=== PATIENT | female | born 1955 | race Caucasian/White ===

== ENCOUNTER 2016-04-01 | Outpatient (CLI) | payer OTHER | END 2016-04-01 12:24 | disposition critical access hospital (66) | CPT/HCPCS: A0425; A0427 ==

== ENCOUNTER 2016-04-01 13:19 | Emergency (ER) | payer OTHER ==
[2016-04-01] MEDS ORDERED: ONDANSETRON 4 MG/2 ML VIAL IVP STA ×2 (13:45→15:20)
[2016-04-01] MEDS ORDERED: HYDROmorphone 1 MG/ML SYRINGE IVP STA ×3 (13:45→15:20)
[2016-04-01] MEDS ORDERED: ONDANSETRON 4 MG/2 ML VIAL ONE ×2 (13:46→15:21)
[2016-04-01] MEDS ORDERED: HYDROmorphone 1 MG/ML SYRINGE ONE ×3 (13:46→15:21)
[2016-04-01] MEDS ORDERED: SODIUM CHLORIDE 0.9% 1,000 ML IV ONE ×2 (14:09→15:21)
[2016-04-01] MEDS ORDERED: MAG HYDROX/AL HYDROX/SIMETH 30 ML UDC PO STA (16:10)
[2016-04-01] MEDS ORDERED: MAG HYDROX/AL HYDROX/SIMETH 30 ML UDC ONE (16:17)
[2016-04-01] MEDS ORDERED: PROMETHAZINE INJ 12.5 MG in SODIUM CHLORIDE 0.9% 50 ML IV STA (16:29)
[2016-04-01] MEDS ORDERED: PROMETHAZINE 25 MG/1 ML VIAL ONE (16:34)
[2016-04-01] MEDS ORDERED: SODIUM CHLORIDE 0.9% 50 ML IV ONE (16:34)
[2016-04-01] MEDS ORDERED: KETOROLAC 60 MG/2 ML VIAL IVP STA (17:01)
[2016-04-01] MEDS ORDERED: ACETAMINOPHEN 1,000 MG/100 ML 100 ML IV STA (17:01)
[2016-04-01] MEDS ORDERED: KETOROLAC 30 MG/ML VIAL ONE ×2 (17:06→17:39)
[2016-04-01] MEDS ORDERED: ACETAMINOPHEN 1,000 MG/100 ML 0 ML IV ONE (17:06)
[2016-04-01] MEDS ORDERED: ACETAMINOPHEN 1,000 MG/100 ML 100 ML IV ONE (17:39)
[2016-04-01] MEDS ORDERED: HYDROcod/ACET 5/325 Prepack 6 PO ONE ×2 (19:09→19:13)
[2016-04-01] MEDS ORDERED: ONDANSETRON ODT 4 MG Prepack 2 TL PRN (19:09)
[2016-04-01] MEDS ORDERED: ONDANSETRON ODT 4 MG Prepack 2 TL ONE (19:13)
== END 2016-04-01 19:32 | disposition home or self-care (01) ==
DX: S42.292A Other displaced fracture of upper end of left humerus, initial encounter for closed fracture (principal); S52.022A Displaced fracture of olecranon process without intraarticular extension of left ulna, initial encounter for closed fracture; S62.102A Fracture of unspecified carpal bone, left wrist, initial encounter for closed fracture; W07.XXXA Fall from chair, initial encounter
CPT/HCPCS: 29105; 73030; 73070; 73110; 96361; 96365; 96367; 96375; 96376; 99284; A9270; J0131; J1170; J7040

== ENCOUNTER 2016-04-03 | Outpatient (CLI) | payer OTHER | END 2016-04-03 06:43 | disposition critical access hospital (66) | DX: M79.602 Pain in left arm (principal) | CPT/HCPCS: A0425; A0427 ==

== ENCOUNTER 2016-04-03 07:05 | Emergency (ER) | payer OTHER ==
[2016-04-03] MEDS ORDERED: traMADol 50 MG TABLET PO STA (07:42)
[2016-04-03] MEDS ORDERED: KETOROLAC 60 MG/2 ML VIAL IVP STA (07:42)
[2016-04-03] MEDS ORDERED: traMADol 50 MG TABLET PO ONE (07:46)
[2016-04-03] MEDS ORDERED: KETOROLAC 60 MG/2 ML VIAL ONE (07:46)
== END 2016-04-03 09:41 | disposition home or self-care (01) ==
DX: S52.022D Displaced fracture of olecranon process without intraarticular extension of left ulna, subsequent encounter for closed fracture with routine healing (principal); S62.102D Fracture of unspecified carpal bone, left wrist, subsequent encounter for fracture with routine healing; S42.202D Unspecified fracture of upper end of left humerus, subsequent encounter for fracture with routine healing; W19.XXXD Unspecified fall, subsequent encounter
CPT/HCPCS: 96374; 99283; A9270

== ENCOUNTER 2016-04-07 06:23 | Observation (INO) | payer OTHER ==
[2016-04-07] MEDS ORDERED: ceFAZolin 2 GM/50 ML 50 ML IV ONE (06:30)
[2016-04-07] MEDS ORDERED: LACTATED RINGERS 1,000 ML IV ONE ×3 (07:23→13:36)
[2016-04-07] MEDS ORDERED: fentaNYL 100 MCG/2 ML VIAL IVP ONE (08:00)
[2016-04-07] MEDS ORDERED: MIDAZOLAM 2 MG/2 ML VIAL IVP ONE (08:00)
[2016-04-07] MEDS ORDERED: PROPOFOL 200 MG/20 ML VIAL IVP ONE (08:00)
[2016-04-07] MEDS ORDERED: ONDANSETRON 4 MG/2 ML VIAL IVP ONE (08:00)
[2016-04-07] MEDS ORDERED: LIDOCAINE-MPF 2% 5 ML VIAL IM ONE (08:00)
[2016-04-07] MEDS ORDERED: DEXAMETHASONE 4 MG/ML VIAL IVP ONE (08:00)
[2016-04-07] MEDS ORDERED: ROCURONIUM 50 MG/5 ML VIAL IVP ONE (08:00)
[2016-04-07] MEDS ORDERED: BUPIVACAINE 0.5%-EPI 1:200000 PF 30 ML VIAL SUBQ ONE ×5 (12:00→13:45)
[2016-04-07] MEDS: HYDROmorphone 1 MG/ML SYRINGE ONE ×3 (14:16→14:24)
[2016-04-07] MEDS ORDERED: HYDROmorphone 1 MG/ML SYRINGE IVP PRN (14:17)
[2016-04-07] MEDS ORDERED: oxyCOD/ACETAMIN 5 MG/325 MG TABLET PO PRN (14:17)
[2016-04-07] MEDS: ACETAMINOPHEN 1,000 MG/100 ML 100 ML IV SCH ×2 (16:26→22:24)
[2016-04-07] MEDS: ceFAZolin 2 GM/50 ML 50 ML IV SCH ×2 (18:44→23:54)
[2016-04-07] MEDS: SODIUM CHLORIDE FLUSH 0.9% 10 ML SYRINGE IVP PRN ×3 (18:53→23:55)
[2016-04-07] MEDS: ASPIRIN EC 325 MG TABLET PO SCH (20:25)
[2016-04-07] MEDS: KETOROLAC 30 MG/ML VIAL IVP PRN (21:51)
[2016-04-07] MEDS: SODIUM CHLORIDE FLUSH 0.9% 10 ML SYRINGE IVP SCH (21:51)
[2016-04-07] MEDS: HYDROmorphone 1 MG/ML SYRINGE IVP PRN (21:51)
[2016-04-07] MEDS: traMADol 50 MG TABLET PO PRN (22:51)
[2016-04-08] MEDS: oxyCOD/ACETAMIN 5 MG/325 MG TABLET PO PRN ×5 (00:51→23:55)
[2016-04-08] MEDS: SODIUM CHLORIDE FLUSH 0.9% 10 ML SYRINGE IVP PRN ×3 (02:11→09:58)
[2016-04-08] MEDS: HYDROmorphone 1 MG/ML SYRINGE IVP PRN ×4 (02:11→09:57)
[2016-04-08] MEDS: ACETAMINOPHEN 1,000 MG/100 ML 100 ML IV SCH ×3 (04:29→15:02)
[2016-04-08] MEDS: SENNA 8.6 MG TABLET PO SCH ×3 (05:50→21:59)
[2016-04-08] MEDS: ceFAZolin 2 GM/50 ML 50 ML IV SCH (05:50)
[2016-04-08] MEDS: traMADol 50 MG TABLET PO PRN ×4 (05:50→22:00)
[2016-04-08] MEDS: SODIUM CHLORIDE FLUSH 0.9% 10 ML SYRINGE IVP SCH ×3 (06:17→19:45)
[2016-04-08] MEDS: DOCUSATE SODIUM 250 MG CAPSULE PO SCH (08:43)
[2016-04-08] MEDS: POLYETHYLENE GLYCOL 3350 17 GM PACKET PO SCH (08:43)
[2016-04-08] MEDS: ASPIRIN EC 325 MG TABLET PO SCH ×2 (08:43→22:00)
[2016-04-08] MEDS: KETOROLAC 30 MG/ML VIAL IVP PRN ×2 (13:40→19:45)
[2016-04-08] MEDS ORDERED: ONDANSETRON 4 MG/2 ML VIAL IVP PRN (14:34)
[2016-04-08] MEDS ORDERED: ACETAMINOPHEN 325 MG TABLET PO PRN (14:35)
[2016-04-09] MEDS: KETOROLAC 30 MG/ML VIAL IVP PRN ×2 (00:14→07:44)
[2016-04-09] MEDS: traMADol 50 MG TABLET PO PRN ×3 (02:13→11:15)
[2016-04-09] MEDS: oxyCOD/ACETAMIN 5 MG/325 MG TABLET PO PRN ×3 (05:00→13:23)
[2016-04-09] MEDS: SODIUM CHLORIDE FLUSH 0.9% 10 ML SYRINGE IVP SCH (06:44)
[2016-04-09] MEDS: SODIUM CHLORIDE FLUSH 0.9% 10 ML SYRINGE IVP PRN (07:47)
[2016-04-09] MEDS: POLYETHYLENE GLYCOL 3350 17 GM PACKET PO SCH (09:20)
[2016-04-09] MEDS: ASPIRIN EC 325 MG TABLET PO SCH (09:20)
[2016-04-09] MEDS: DOCUSATE SODIUM 250 MG CAPSULE PO SCH (09:20)
== END 2016-04-09 14:05 | disposition home or self-care (01) ==
PROC: 0PSL04Z Reposition Left Ulna with Internal Fixation Device, Open Approach (ICD-10-PCS; 2016-04-07)
PROC: 0PSJ04Z Reposition Left Radius with Internal Fixation Device, Open Approach (ICD-10-PCS; 2016-04-07)
PROC: 0PSD04Z Reposition Left Humeral Head with Internal Fixation Device, Open Approach (ICD-10-PCS; principal; 2016-04-07 07:30)
DX: S42.232A 3-part fracture of surgical neck of left humerus, initial encounter for closed fracture (principal); S52.572A Other intraarticular fracture of lower end of left radius, initial encounter for closed fracture; S52.602A Unspecified fracture of lower end of left ulna, initial encounter for closed fracture; S52.032A Displaced fracture of olecranon process with intraarticular extension of left ulna, initial encounter for closed fracture; G89.18 Other acute postprocedural pain; Z87.891 Personal history of nicotine dependence
CPT/HCPCS: 23615; 24685; 25609; 25652; 73030; 73070; 73100; A9270; G0378; J0131; J0690; J1170; J7120

== ENCOUNTER 2016-05-16 10:28 | Outpatient (CLI) | payer OTHER | END 2016-05-16 10:29 | disposition home or self-care (01) | DX: S52.032D Displaced fracture of olecranon process with intraarticular extension of left ulna, subsequent encounter for closed fracture with routine healing (principal); S52.572D Other intraarticular fracture of lower end of left radius, subsequent encounter for closed fracture with routine healing; S52.602D Unspecified fracture of lower end of left ulna, subsequent encounter for closed fracture with routine healing; S42.202D Unspecified fracture of upper end of left humerus, subsequent encounter for fracture with routine healing ==